=== PATIENT | female | born 1985 | race Caucasian/White ===

== ENCOUNTER 2018-06-08 16:36 | Emergency (ER) | payer OTHER ==
[~2018-06-08] VITALS: Ht 165.1 cm; Wt 90.0 kg
[~2018-06-08 16:36] MED LIST: PREN-29 PO
[2018-06-08 16:42] VITALS: Ht 165.1 cm; Wt 90.0 kg
[2018-06-08] MEDS ORDERED: SOD CHLORIDE 0.9% 1,000 ML IV STA (18:20)
[2018-06-08] MEDS ORDERED: ACETAMINOPHEN 500 MG TAB PO STA (18:20)
[2018-06-08] MEDS ORDERED: CEFTRIAXONE 1 GM/50 ML (PMX) 50 ML IVPB ONE (18:30)
[2018-06-08] MEDS ORDERED: DEXAMETHASONE 10 MG/ML 1 ML INJ IV ONE (18:30)
[2018-06-08] MEDS ORDERED: SOD CHLORIDE 0.9% 100 ML ONE (20:01)
[2018-06-08] MEDS ORDERED: IOHEXOL 300MG/ML 150 ML BTL ONE (20:01)
[2018-06-08] MEDS ORDERED: AMOX1TAB10 PO (21:27)
[2018-06-08] MEDS ORDERED: PRED20TA PO (21:27)
--- NOTE | 2018-06-08 21:32 | ERD ---
ER Documentation Chief Complaint Chief Complaint RIGHT NECK SWELLING WITH RECENT HX OF TOSTADA BEING STUCK HPI This is a 32-year-old female who presents with fever and swelling of her right neck that she has had for 2 days. She states about a week ago she was eating a tostada and felt like she got some of the tostada stuck in her throat. Today she went to her primary care doctor and they did a strep test which was negative but told her to come to the emergency room as she may have a peritonsillar abscess. She has not taken any Tylenol or Motrin. No vomiting. She is tolerating oral intake. ROS All systems reviewed and are negative except as per history of present illness. Medications Home Meds Active Scripts Prednisone* (Prednisone*) 20 Mg Tab, 60 MG PO DAILY for 4 Days, TAB Prov:RAMY VEGA PA-C 06/08/18 Amoxicillin/Potassium Clav (Amox-Clav 875-125 mg Tablet) 875-125 mg Tab, 1 TAB PO BID for 7 Days, #14 TAB Prov:RAMY VEGA PA-C 06/08/18 Reported Medications Vit-Fe Fumarate-FA* (Devonte Tablet*) 1 Tab Tablet, 1 TAB PO DAILY, TAB 08/01/14 Allergies Allergies: Coded Allergies: No Known Allergies (Verified Allergy, Mild, 04/12/12) PMhx/Soc History of Surgery: Yes (APPY 2006) Anesthesia Reaction: No Hx Neurological Disorder: No Hx Respiratory Disorders: No Hx Cardiac Disorders: No Hx Psychiatric Problems: Yes (BIPOLAR?) Hx Miscellaneous Medical Probl: No Hx Alcohol Use: No Hx Substance Use: No Hx Tobacco Use: No FmHx Family History: No diabetes Physical Exam Vitals Vital Signs Date Temp Pulse Resp B/P (MAP) Pulse Ox O2 O2 Flow FiO2 Time Delivery Rate 06/08/18 101.6 133 20 132/88 97 16:42 (103) Physical Exam INITIAL VITAL SIGNS: Reviewed by me GENERAL: Awake, alert and oriented x 4, well appearing, nontoxic, speaking in full sentences. No acute distress HEAD: Atraumatic NECK: Supple. Right-sided lymphadenopathy THROAT: Bilateral tonsillar erythema and edema with scant exudates, more swelling on the right side. Uvula midline, no kissing tonsils RESPIRATORY: Clear to auscultation bilaterally. Symmetric chest wall rise. No wheezing or rales. No accessory muscle use. CV: Regular rate and rhythm. No murmurs, rubs, or gallops. Result Diagram: 06/08/18185706/08/181857 Results 24 hrs Laboratory Tests Test 06/08/18 18:44 06/08/18 18:58 POC Beta HCG, Qualitative NEGATIVE White Blood Count 12.7 10^3/ul Red Blood Count 5.09 10^6/ul Hemoglobin 13.9 g/dl Hematocrit 42.0 % Mean Corpuscular Volume 82.5 fl Mean Corpuscular Hemoglobin 27.3 pg Mean Corpuscular Hemoglobin Concent 33.1 g/dl Red Cell Distribution Width 13.6 % Platelet Count 326 10^3/UL Mean Platelet Volume 10.0 fl Immature Granulocytes % 0.700 % Neutrophils % 64.5 % Lymphocytes % 23.6 % Monocytes % 7.9 % Eosinophils % 2.8 % Basophils % 0.5 % Nucleated Red Blood Cells % 0.0 /100WBC Immature Granulocytes # 0.090 10^3/ul Neutrophils # 8.2 10^3/ul Lymphocytes # 3.0 10^3/ul Monocytes # 1.0 10^3/ul Eosinophils # 0.4 10^3/ul Basophils # 0.1 10^3/ul Nucleated Red Blood Cells # 0.0 10^3/ul Sodium Level 137 mmol/L Potassium Level 3.8 mmol/L Chloride Level 105 mmol/L Carbon Dioxide Level 20 mmol/L Anion Gap 12 Blood Urea Nitrogen 8 mg/dl Creatinine 0.50 mg/dl Est Glomerular Filtrat Rate mL/min > 60 mL/min Glucose Level 112 mg/dl Calcium Level 9.4 mg/dl Total Bilirubin 0.2 mg/dl Direct Bilirubin 0.00 mg/dl Indirect Bilirubin 0.2 mg/dl Aspartate Amino Transf (AST/SGOT) 49 IU/L Alanine Aminotransferase (ALT/SGPT) 52 IU/L Alkaline Phosphatase 241 IU/L Total Protein 8.9 g/dl Albumin 4.3 g/dl Globulin 4.60 g/dl Albumin/Globulin Ratio 0.93 Current Medications Medications Dose Sig/Jay Start Time Status Last (Trade) Ordered Route PRN Stop Time Admin Dose Reason Admin 1,000 mg ONCE STAT 06/08/18 DC 06/08/18 Acetaminophen PO 18:20 18:53 (Tylenol 06/08/18 18:22 Tab) Sodium 1,000 ml @ Q1H STAT 06/08/18 DC 06/08/18 Chloride 1,000 mls/hr IV 18:20 18:53 06/08/18 19:19 10 mg ONCE ONCE 06/08/18 DC 06/08/18 Dexamethasone IV 18:30 18:53 (Decadron) 06/08/18 18:31 Ceftriaxone 50 ml @ ONCE ONCE 06/08/18 DC 06/08/18 Sodium 100 mls/hr IVPB 18:30 18:53 06/08/18 18:59 IV Flush 10 ml STK-MED 06/08/18 DC (NS 10 ml) ONCE .ROUTE 20:01 06/08/18 20:02 Sodium 100 ml @ ud STK-MED 06/08/18 DC Chloride ONCE .ROUTE 20:01 06/08/18 20:02 Iohexol 150 ml STK-MED 06/08/18 DC (Omnipaque ONCE .ROUTE 20:01 300mg/ ml) 06/08/18 20:02 Procedures/MDM Patient here for lymphadenopathy and right sided sore throat. She has a fever and tachycardia she was given Tylenol and fluids as well as Decadron and Rocephin. She has a white count of 12, otherwise labs unremarkable.ct shows Contrast-enhanced CT of the neck demonstrates diffuse enlargement of the right palatine tonsil as well as right side of the lingual tonsil with prominence of the right side mucosal surfaces with associated single abnormally enlarged right level II node measuring up to 0.5 cm although does not have a necrotic center. Other right greater than left reactive lymphadenopathy is also seen. No enhancement is seen to suggest abscess or necrosis or underlying mass. This can represent infectious process although the single node is worrisome. This can represent infectious process but would recommend close interval follow-up and consider soft tissue diagnosis of lymphadenopathy persists. I reviewed this f indings with Dr. Hilton who also examined the patient and recommended I place a call to the radiologist who read the CT and I did her, dr Colleen Montoya who confirmed that there was no peritonsillar abscess, no evidence of retained foreign body, no perforation. She also stated that given fever and findings this is most likely infectious and recommended treating the patient. Patient was given prescription for Augmentin and course of prednisone. She was also given copies of all her labs and CT report so she can follow-up with primary care which she states she would be able to do so within the next 2-3 days. Otherwise she should return here for follow-up examination. Patient counseled regarding my diagnostic impression and care plan. Prior to discharge all questions answered. Pt agrees with treatment plan and understands strict return precautions. Pt is instructed to follow up with primary care provider within 24- 48 hours. Precautionary instructions provided including instructions to return to the ER if not improving or for any worsening or changing symptoms or concerns. Departure Diagnosis: Primary Impression: Lymphadenopathy Additional Impression: Pharyngitis Condition: Stable Patient Instructions: Pharyngitis, Strep (Presumed) Additional Instructions: Call your primary care doctor TOMORROW for an appointment during the next 1-2 days.See the doctor sooner or return here if your condition worsens before your appointment time. RAMY VEGA PA-C Jun 08, 2018 21:32
[2018-06-08 21:37] VITALS: BP 121/76; PULSE 65; RESP 18
== END 2018-06-08 21:39 | disposition home or self-care (01) ==
LOC: FTE 16:36
DX: R59.1 Generalized enlarged lymph nodes (principal); J02.9 Acute pharyngitis, unspecified
CPT/HCPCS: 70491; 80053; 81025; 85025; J0696; J1100; J7030; Q9967; Z7610; 36415; 96374; 96375

== ENCOUNTER 2018-06-10 09:45 | Emergency (ER) | payer OTHER ==
[~2018-06-10] VITALS: Wt 89.0 kg
[~2018-06-10 09:45] MED LIST changes: +AMOX1TAB10 PO; +PRED20TA PO
[2018-06-10] MEDS ORDERED: KETOROLAC 30 MG INJ IV STA (10:03)
[2018-06-10] MEDS ORDERED: SOD CHLORIDE 0.9% 1,000 ML IV STA (10:03)
[2018-06-10] MEDS ORDERED: CLINDAMYCIN 600 MG/D5W (PMX) 50 ML IVPB SCH (10:30)
[2018-06-10] MEDS ORDERED: DEXAMETHASONE 10 MG/ML 1 ML INJ IV ONE (10:30)
[2018-06-10] MEDS ORDERED: CLIN300C10 PO (11:52)
[2018-06-10] MEDS ORDERED: PRED20TA PO (11:52)
[2018-06-10] MEDS ORDERED: NAPR-985 PO (11:52)
[2018-06-10 12:10] VITALS: BP 112/72; PULSE 74; RESP 17
--- NOTE | 2018-06-10 12:36 | ERD ---
ER Documentation Chief Complaint Chief Complaint HERE 2 DAYS AGO, HAS SWOLLEN LYMP NODE, STILL HAS SORE THROAT HPI 32-year-old female presenting with a lymph node swelling to the right side of her neck. No fevers. Patient has pain with swallowing. Has not taken medication today. Patient was seen 2 days ago and given Augmentin which she has been taking however she has continued pain. Denies other medical problems. NKDA. Surgical history denies. Social history denies ROS All systems reviewed and are negative except as per history of present illness. Medications Home Meds Active Scripts Prednisone* (Prednisone*) 20 Mg Tab, 40 MG PO DAILY for 4 Days, TAB Prov:SHIVAM GIVENS PA-C 06/10/18 Naproxen* (Naprosyn*) 500 Mg Tablet, 500 MG PO BID PRN for PAIN AND/OR INFLAMMATION, #30 TAB Prov:SHIVAM GIVENS PA-C 06/10/18 Clindamycin Hcl* (Clindamycin Hcl*) 300 Mg Capsule, 300 MG PO TID for 10 Days, CAP Prov:SHIVAM GIVENS PA-C 06/10/18 Prednisone* (Prednisone*) 20 Mg Tab, 60 MG PO DAILY for 4 Days, TAB Prov:RAMY VEGA PA-C 06/08/18 Amoxicillin/Potassium Clav (Amox-Clav 875-125 mg Tablet) 875-125 mg Tab, 1 TAB PO BID for 7 Days, #14 TAB Prov:RAMY VEGA PA-C 06/08/18 Reported Medications Vit-Fe Fumarate-FA* (Devonte Tablet*) 1 Tab Tablet, 1 TAB PO DAILY, TAB 08/01/14 Allergies Allergies: Coded Allergies: No Known Allergies (Verified Allergy, Mild, 04/12/12) PMhx/Soc History of Surgery: Yes (APPY 2006) Anesthesia Reaction: No Hx Neurological Disorder: No Hx Respiratory Disorders: No Hx Cardiac Disorders: No Hx Psychiatric Problems: Yes (BIPOLAR?) Hx Miscellaneous Medical Probl: No Hx Alcohol Use: No Hx Substance Use: No Hx Tobacco Use: Yes Smoking Status: Current some day smoker FmHx Family History: No diabetes, No coronary disease, No other Physical Exam Vitals Vital Signs Date Temp Pulse Resp B/P (MAP) Pulse Ox O2 O2 Flow FiO2 Time Delivery Rate 06/10/18 98.9 74 17 112/72 98 Room Air 12:10 (85) 06/10/18 98.7 85 18 117/75 97 09:47 (89) Physical Exam GENERAL: The patient is well-appearing, well-nourished, in no acute distress HEENT: Atraumatic. Conjunctivae are pink. Pupils equal, round, and reactive to light. There is no scleral icterus. Tympanic membranes clear bilaterally. Oropharynx erythematous with mild swelling noted to the right tonsil. No uvular deviation. NECK: C-spine is soft and supple. There is no meningismus. Positive cervical lymphadenopathy noted to the right lymph node CHEST: Clear to auscultation bilaterally. There are no rales, wheezes or rhonchi. HEART: Regular rate and rhythm. No murmurs, clicks, rubs or gallops. Results 24 hrs Laboratory Tests Test 06/10/18 10:26 POC Beta HCG, Qualitative NEGATIVE Current Medications Medications Dose Sig/Jay Start Time Status Last (Trade) Ordered Route PRN Stop Time Admin Dose Reason Admin Sodium 1,000 ml @ Q1H STAT 06/10/18 DC 06/10/18 Chloride 1,000 mls/hr IV 10:03 10:33 06/10/18 11:02 Ketorolac 30 mg ONCE STAT 06/10/18 DC 06/10/18 Tromethamine IV 10:03 10:34 (Toradol) 06/10/18 10:06 Clindamycin 50 ml @ 50 ONCE IVPB 06/10/18 DC 06/10/18 HCl/ mls/hr 10:30 10:33 Dextrose 06/10/18 11:29 10 mg ONCE ONCE 06/10/18 DC 06/10/18 Dexamethasone IV 10:30 10:33 (Decadron) 06/10/18 10:31 Procedures/MDM DIAGNOSTIC IMAGING REPORT Patient: SERENITY GREER : 1985 Age: 32 Sex: F MR #: [id number] DOS: 06/10/18 1003 Ordering MD: DELANO GIVENS PA-C Location: [facility] Room/Bed: PROCEDURE: Ultrasound right neck CLINICAL INDICATION: Right-sided lymph node. TECHNIQUE: Sonographic evaluation of the right neck was performed with rivera scale and color imaging. Images were reviewed on a high-resolution PACS workstation. COMPARISON: None available FINDINGS: Corresponding to the area of concern in the right neck there is a dominant large lymph node with fatty hilum and central vascularity measuring 4.5 x 1.9 x 3.0 cm corresponds with large lymph node seen on 06/08/18 CT. IMPRESSION: Markedly enlarged lymph node measuring 4.5 x 3.0 x 1.9 cm with tiny fatty hilum and significant central vascularity corresponds with findings on 06/08/[address] ER course: 1L NS IV clindamycin, Toradol and Decadron given ED. Upon reevaluation patient symptoms were improved. MDM: 32-year-old female presenting with pain to lymph node. Patient will be changed with antibiotic she is taking. I have low suspicion for retropharyngeal abscess. Patient's vitals are stable. Patient likely has enlarged lymph node with concerns of early peritonsillar abscess patient is recommended to return in 2 days for reevaluation. All questions answered discharge. Patient is recommended follow-up with primary care. Departure Diagnosis: Primary Impression: Sore throat Condition: Stable Patient Instructions: Self-Care for Sore Throats Referrals: RIDDHI ZELAYA MD (PCP) Additional Instructions: FOLLOW UP WITH YOUR PRIMARY CARE PHYSICIAN TOMORROW.Return to this facility if you are not improving as expected. SHIVAM GIVENS PA-C Jun 10, 2018 12:36
== END 2018-06-10 12:24 | disposition home or self-care (01) ==
LOC: FTE 09:45
DX: J02.9 Acute pharyngitis, unspecified (principal); F17.210 Nicotine dependence, cigarettes, uncomplicated
CPT/HCPCS: 76536; 81025; 96374; 96375; J1100; J1885; J7030; Z7502; Z7610